=== PATIENT | male | born 2000 | race Caucasian/White ===

== ENCOUNTER 2022-05-21 16:08 | Outpatient (CLI) | payer MEDICAID, SELFPAY ==
--- NOTE | 2022-05-21 16:00 | MR_ITS ---
WS: [id number] MRI LEFT SHOULDER NONCONTRAST TECHNIQUE: Sagittal T2, coronal T1, T2 and proton density imaging. Axial gradient PDE imaging. CLINICAL INFORMATION: L SHOULDER JOINT PAIN M25.512 COMPARISON: None. FINDINGS: Normal AC joint. Mild downsloping acromion. Mild to moderate narrowing of the subacromial space. Norm al bone marrow signal in the humerus and glenoid. Distal supraspinatus is normal. Normal intra-articu lar biceps tendon. Normal infraspinatus. Normal teres minor. Subscapularis normal in appearance. Migdalia ps tendon intact within the bicipital groove but diminutive for patient this age. Irregularity anterosuperior glenoid labrum with fissuring suspicious for SLAP tear. This can be furth er evaluated with arthrogram. No significant Hill-Sachs lesion. MR/MR shoulder LT wo con* [id number] IMPRESSION: 1. Irregularity anterosuperior glenoid labrum with fissuring suspicious for SL AP tear. This can be further evaluated with arthrogram. 2. Normal rotator cuff. 3. Biceps tendon intact within the bicipital groove but diminutive for patient this age.
== END 2022-05-21 16:09 | disposition home or self-care (01) ==
LOC: RAD 16:08
PROVIDERS: Visit Provider Nurse Practitioner Family
DX: M25.512 Pain in left shoulder (principal)
CPT/HCPCS: 73221

== ENCOUNTER → 2022-06-12 09:37 | Outpatient (BNVA) | payer MEDICAID, SELFPAY | PROVIDERS: Referring Provider Nurse Practitioner Family; Visit Provider Student in an Organized Health Care Education/Training Program | DX: W55.22XA Struck by cow, initial encounter (principal); W55.89XA Other contact with other mammals, initial encounter; S43.439A Superior glenoid labrum lesion of unspecified shoulder, initial encounter | CPT/HCPCS: 99204 ==

== ENCOUNTER → 2022-06-12 09:41 | Outpatient (BNVA) | payer MEDICAID, SELFPAY | PROVIDERS: Referring Provider Nurse Practitioner Family; Visit Provider Student in an Organized Health Care Education/Training Program | DX: M25.512 Pain in left shoulder (principal) | CPT/HCPCS: 73030 ==

== ENCOUNTER 2022-06-19 06:00 | Outpatient (RCR) | payer MEDICAID, SELFPAY | END 2022-06-27 23:59 | disposition home or self-care (01) | LOC: SPT 06:00 | PROVIDERS: Visit Provider Student in an Organized Health Care Education/Training Program | DX: Z47.89 Encounter for other orthopedic aftercare (principal) | CPT/HCPCS: 97110; 97161 ==

== ENCOUNTER 2022-06-28 06:00 | Outpatient (RCR) | payer MEDICAID, SELFPAY | END 2022-07-27 23:59 | disposition home or self-care (01) | LOC: SPT 06:00 | PROVIDERS: Visit Provider Student in an Organized Health Care Education/Training Program | DX: S43.005D Unspecified dislocation of left shoulder joint, subsequent encounter (principal); X58.XXXD Exposure to other specified factors, subsequent encounter | CPT/HCPCS: 97110 ==

== ENCOUNTER 2024-06-26 01:50 | Emergency (ER) | payer SELFPAY ==
[2024-06-26] VITALS (7 sets, daily range): BP systolic 115–156; BP diastolic 61–84; PULSE 82–100; RESP 12–20; TEMP 36.6; O2SAT 91–98; BMI 19.8
--- NOTE | 2024-06-26 02:13 | ECG_ITS ---
[facility] Test Date: 2024-06-26 Pat Name: Prince Bentley Department: Room: Gender: Male Collaborating Supervising Physician: : [id number] Requested By: Guicho Fleming Order Number: [id number] Yvon MD: Jermain Wayne M.D. Measurements Intervals [place] Rate: 87 P: 55 WV: 151 QRS: 105 QRSD: 123 T: 57 QT: 361 QTc: 434 Interpretive Statements SINUS RHYTHM INDETERMINATE AXIS RIGHT BUNDLE BRANCH BLOCK [120+ ms QRS DURATION, UPRIGHT V1, 40+ ms S IN I/aVL/V4/V5/V6] No previous ECG available for comparison Electronically Signed On 06-26-2024 18:14:53 CDT by Jermain Wayne M.D. [id number]
[2024-06-26 02:30] LABS: Basophils # 0.1 10^3/uL (0.0-0.1); Basophils % 0.6 %; Eosinophils # 0.2 10^3/uL (0.0-0.8); Eosinophils % 1.5 %; Hematocrit 48.4 % (37-53); Lymphocytes # 9.2 10^3/uL (0.8-4.8); Lymphocytes % 56.6 %; Mean Corpuscular HGB Conc 35.7 g/dL (30-55); Mean Corpuscular Hemoglobin 30.2 pg (27-33); Mean Corpuscular Volume 84.6 fl (82-101); Monocytes % 6.3 %; Neutrophils % 33.7 %; Nucleated Red Blood Cells % 0 %; Platelet Count 361 10^3/cmm (157-399); Red Blood Count 5.72 10^6/uL (3.85-5.65); Red Cell Distribution Width 12.1 % (12.1-15.1)
[2024-06-26 02:48] LABS: Alanine Aminotransferase 27 U/L (0-41); Albumin Level 4.8 g/dL (3.5-5.2); Alcohol Level 160 mg/dL (0-10); Alkaline Phosphatase 108 U/L (40-130); Anion Gap 21.1 (5-19); Aspartate Amino Transferase 22 U/L (0-40); Blood Urea Nitrogen 7 mg/dL (6-20); Calcium 9.6 mg/dL (8.5-10.5); Carbon Dioxide 21 mmol/L (22-29); Chloride 106 mmol/L (98-107); Creatinine Clr Calc Pharmacy 151.3088; Globulin 2.9 g/dL (1.3-4.6); Glucose 154 mg/dL (65-115); Osmolality Calculated 301 mOsm/kg (285-295); Potassium 3.1 mmol/L (3.5-5.1); Sodium 145 mmol/L (136-145); Total Bilirubin 0.4 mg/dL (0.15-1.2); Total Protein 7.7 g/dL (6.6-8.7)
[2024-06-26 02:49] LABS: Acetaminophen < 5.0 ug/mL (10-30); Salicylate < 0.3 mg/dL (3-10)
--- NOTE | 2024-06-26 02:59 | ED_ITS ---
HPI - Allergic Reaction 2 General: Chief complaint: Allergic Reaction Stated complaint: Allergic reaction Time Seen by Provider: 06/26/24 01:52 History of Present Illness: HPI narrative: 23-year-old male who was found unrespons arturo by EMS. First they thought maybe he was having allergic reaction so they gave him 0.3 of epinephrine however patient woke and seems to be intoxicated and very paranoid. He is convinced that the paramedics were trying to kill him and is also talking nonsensical and just has general paranoia. Related Data Previous Rx's Medication Instructions Recorded meloxicam 15 mg tablet 15 mg PO DAILY #14 tabs 06/12/22 Allergies Allergy/AdvReac Type Severity Reaction Status Date / Time No Known Allergies Allergy Unverified 06/12/22 09:46 [facility] ED 2 PFSH: Medical History (Updated 06/26/24 @ 04:40 by Guicho Fleming MD) SLAP tear of shoulder Physical Exam 2 Const: COMMON NORMALS: no acute distress, average body habitus, no limitations, healthy appearing, alert and well nourished Neck/C-Spine: COMMON NORMALS: no JVD Resp: COMMON NORMALS: normal respiratory effort, No retractions, No use of accessory muscles, clear to auscultation bilaterally and percussion normal A USCULTATION: clear to auscultation bilaterally PERCUSSION: percussion normal Cardio: COMMON NORMALS: no JVD, regular rate, regular rhythm, S1 normal heart sound present, S2 normal heart sound present, No gallops present (Cardio), No clicks present (Cardio), No murmurs present (Cardio), No rub (Cardio) and Peripheral pulses 2+ throughout RATE: regular rate RHYTHM: regular rhythm HEART SOUNDS: S1 normal heart sound present and S2 normal heart sound present PERIPHERAL PULSES: Peripheral pulses 2+ throughout GI: COMMON NORMALS: Normal to inspection, nondistended, normoactive bowel sounds present, Soft to palpation, non-tender, No hepatosplenomegaly present, no masses and no bruits PALPATION: Yes Soft to palpation and Yes No hepatosplenomegaly present Neuro: SENSORIUM/ORIENTATION: Yes alert Psych: OTHER: Patient very paranoid, denies suicidal or homicidal ideation. Course 2 Vital Signs: Vital signs: Vital Signs Temperature 98 F 06/26/24 01:59 Pulse Rate 88 06/26/24 03:54 Respiratory Rate 12 06/26/24 03:54 Blood Pressure 119/63 06/26/24 03:54 Pulse Oximetry 91 06/26/24 03:54 Oxygen Delivery Me thod Room Air 06/26/24 03:54 MDM - Allergic Reaction Medical Decision Making 23-year-old male who was found unresponsive by EMS. First they thought maybe he was having allergic reaction so they gave him 0.3 of epinephrine however patient woke and seems to be intoxicated and very paranoid. He is convinced that the paramedics were trying to kill him and is also talking nonsensical and just has general paranoia. Patient is much more alert and awake now upon recheck. He is is no longer as paranoid. He is having more of a normal conversation. Family states that this is kind to how he acts when he gets drinking alcohol. He has a sister who is here and willing to take him home and watch him. She states that she is comfortable with the way he is acting as he has done this before. Lab Data 06/26/24 02:20 06/26/24 02:20 Laboratory Results WBC 16.30 10^3/uL (3.29-11.43) H 06/26/24 02:20 Corrected WBC Cancelled 06/26/24 02:00 RBC 5.72 10^6/uL (3.85-5.65) H 06/26/24 02:20 Hgb 17.30 g/dL (11.27-16.99) H 06/26/24 02:20 Hct 48.4 % (37-53) 06/26/24 02:20 MCV 84.6 fl (82-101) 06/26/24 02:20 MCH 30.2 pg (27-33) 06/26/24 02:20 MCHC 35.7 g/dL (30-55) 06/26/24 02:20 RDW 12.1 % (12.1-15.1) 06/26/24 02:20 Plt Count 361 10^3/cmm (157-399) 06/26/24 02:20 MPV 9.0 fL (7.4-10.4) 06/26/24 02:20 Gran % Cancelled 06/26/24 02:00 Neut % (Auto) 33.7 % 06/26/24 02:20 Lymph % (Auto) 56.6 % 06/26/24 02:20 [place] % (Auto) 6.3 % 06/26/24 02:20 Eos % (Auto) 1.5 % 06/26/24 02:20 Baso % (Auto) 0.6 % 06/26/24 02:20 Neut # (Auto) 5.50 10^3/uL (1.8-7.7) 06/26/24 02:20 Lymph # (Auto) 9.2 10^3/uL (0.8-4.8) H 06/26/24 02:20 [place] # (Auto) 1.0 10^3/uL (0.2-0.9) H 06/26/24 02:20 Eos # (Auto) 0.2 10^3/uL (0.0-0.8) 06/26/24 02:20 Baso # (Auto) 0.1 10^3/uL (0.0-0.1) 06/26/24 02:20 Absolute Gran (auto) Cancelled 06/26/24 02:00 Nucleated RBC % (auto) 0 % 06/26/24 02:20 Nucleated RBCs # 0.0 /100WBC 06/26/24 02:20 Sodium 145 mmol/L (136-145) 06/26/24 02:20 Potassium 3.1 mmol/L (3.5-5.1) L 06/26/24 02:20 Chloride 106 mmol/L (98-107) 06/26/24 02:20 Carbon Dioxide 21 mmol/L (22-29) L 06/26/24 02:20 Anion Gap 21.1 (5-19) H 06/26/24 02:20 BUN 7 mg/dL (6-20) 06/26/24 02:20 Creatinine 0.7 mg/dL (0.7-1.2) 06/26/24 02:20 GFR Calculation 141.0 mL/min (90-130) H 06/26/24 02:20 Glucose 154 mg/dL (65-115) H 06/26/24 02:20 Calculated Osmolality 301 mOsm/kg (285-295) H 06/26/24 02:20 Calcium 9.6 mg/dL (8.5-10.5) 06/26/24 02:20 Total Bilirubin 0.4 mg/dL (0.15-1.2) 06/26/24 02:20 AST 22 U/L (0-40) 06/26/24 02:20 ALT 27 U/L (0-41) 06/26/24 02:20 Alkaline Phosphatase 108 U/L (40-130) 06/26/24 02:20 Total Protein 7.7 g/dL (6.6-8.7) 06/26/24 02:20 Albumin 4.8 g/dL (3.5-5.2) 06/26/24 02:20 Globulin 2.9 g/dL (1.3-4.6) 06/26/24 02:20 Urine Color Yellow (Yellow) 06/26/24 02:37 Urine Appearance Clear (CLEAR) 06/26/24 02:37 Urine pH 6.0 (5-7) 06/26/24 02:37 Ur Specific [place] 1.002 (1.005-1.030) L 06/26/24 02:37 Urine Protein Negative (Negative) 06/26/24 02:37 Urine Glucose (UA) Negative (Normal) 06/26/24 02:37 Urine Ketones Negative (Negative) 06/26/24 02:37 Urine Blood Negative (Negative) 06/26/24 02:37 Urine Nitrate Negative (Negative) 06/26/24 02:37 Urine Bilirubin Negative (Negative) 06/26/24 02:37 Urine Urobilinogen 0.2 mg/dL (Negative) 06/26/24 02:37 Ur Leukocyte Esterase Negative (Negative) 06/26/24 02:37 Urine RBC 0-2 /hpf (0-2) 06/26/24 02:37 Urine WBC 0-5 /hpf (0-5) 06/26/24 02:37 Ur Squamous Epith Cells 0-5 /hpf (0-5) 06/26/24 02:37 Amorphous Sediment Not Reportable 06/26/24 02:37 Urine Bacteria None seen /hpf (NONE) 06/26/24 02:37 Hyaline Casts 0-4 /lpf H 06/26/24 02:37 Salicylates < 0.3 mg/dL (3-10) L 06/26/24 02:20 Urine Opiates Screen Negative ng/mL (Negative) 06/26/24 02:37 Acetaminophen < 5.0 ug/mL (10-30) L 06/26/24 02:20 Ur Barbiturates Screen Negative ng/mL (Negative) 06/26/24 02:37 Ur Phencyclidine Scrn Negative ng/mL (Negative) 06/26/24 02:37 Ur Amphetamines Screen Negative ng/mL (Negative) 06/26/24 02:37 U Benzodiazepines Scrn Negative ng/mL (Negative) 06/26/24 02:37 Urine Cocaine Screen Negative ng/mL (Negative) 06/26/24 02:37 U Marijuana (THC) Screen Negative ng/mL (Negative) 06/26/24 02:37 Ethyl Alcohol 160 mg/dL (0-10) H 06/26/24 02:20 No radiology studies performed this visit Discharge Plan Discharge Patient Disposition: Home Clinical Impression: Alcohol intoxication Condition: Stable Prescriptions: No Action meloxicam 15 mg tablet 15 mg PO DAILY Qty: 14 0RF Rx Instructions: TAKE ONE TABLET DAILY Discharge Orders: Discharge ED (Routine); Ordered 06/26/24 Ordered By: Guicho Fleming Patient Instructions: Opioid Safety, Pain Management Coding Level of Care Code ED Registered Safety Engineer for Dora Mccarthy
[2024-06-26 03:04] LABS: Charge for UA Resulting for Rev
[2024-06-26 03:11] LABS: Bilirubin Urine Negative (Negative); Blood Urine Negative (Negative); Glucose Urine UA Negative (Normal); Ketones Urine Negative (Negative); Leukocyte Esterase Urine Negative (Negative); Nitrate Urine Negative (Negative); Protein Urine Negative (Negative); Specific Gravity, Urine 1.002 (1.005-1.030); Urine Appearance Clear (CLEAR); Urine Color Yellow (Yellow); Urobilinogen Urine 0.2 mg/dL (Negative)
[2024-06-26 03:12] LABS: Slide Review Slide Review Perform
[2024-06-26 03:15] LABS: Amphetamines Screen Urine Negative (Negative); Barbiturates Screen Urine Negative (Negative); Benzodiazepines Screen Urine Negative (Negative); Cocaine Screen Urine Negative (Negative); Opiate Screen Urine Negative (Negative); PCP Screen Urine Negative (Negative); THC Screen Urine Negative (Negative)
[2024-06-26 03:16] LABS: Bacteria Urine None Seen /hpf; Hyaline Casts Urine 0-4 /lpf; RBC Urine 0-2 /hpf (0-2); Squamous Epithelial Cell Urine 0-5 /hpf (0-5); WBC Urine 0-5 /hpf (0-5)
== END 2024-06-26 05:15 | disposition home or self-care (01) ==
PROVIDERS: Emergency Provider Emergency Medicine
DX: F10.129 Alcohol abuse with intoxication, unspecified (principal); Y90.6 Blood alcohol level of 120-199 mg/100 ml
CPT/HCPCS: 36415; 80053; 80306; 80307; 81003; 81015; 85025; 93005; 99284